=== PATIENT | female | born 1985 | race Caucasian/White ===

== ENCOUNTER 2017-01-10 16:40 | Emergency (ER) | payer MEDICAID ==
[~2017-01-10] VITALS: Ht 160 cm; Wt 68.0 kg
[2017-01-10] MEDS ORDERED: PENICILLIN VK500 M1 PO (17:16)
--- NOTE | 2017-01-10 17:18 | [facility]gent Treatment [facility] Report ---
History of Present Issue Date/Time Seen by Provider 01/10/17 1701 Visit Reason Pt arrived:Walked Presenting Problem:HAD TWO TEETH (1 UPPER AND 1 LOWER) BY DR RIVERA IN [place] A WEEK OR SO AGO AND HAS HAD INCR PAIN AND DISCOMFORT SINCE. STATES SHE IS A SMOKER AND KNOWS THAT CAN CAUSE DRY SOCKET, BUT TOOK THE CEPHALEXIN PRESCRIBED SHE WAS TOLD. IS CONCERNED WITH THE PAIN Location if Accident: Onset of symptoms date/time:01/0310/15/799 or onset unknown for: Have you (or family members/close friends) recently traveled outside the [facility]? N If Yes, where/when: Have you had exposure to infectious disease within the past month? TB? Other? Specify: c/o severe dental pain 2 weeks after tooth extraction. Saw Dr. Rivera, a dentist in [place], 2 weeks ago for extraction of two teeth, one top left and one bottom left. both seemed to be improving post procedure but for the last "week or so" pain has been becoming increasingly worse in bottom left site. Now throbbing constantly. No swelling, drainage, redness. "I think I see something white in the hole". completed prescribed cephalexin. Reports she does smoke and was warned about dry socket but smoked anyways. no improvement despite tylenol, ibuprofen, naproxen. Dr. Rivera is currently on vacation and she is not able to see him until Sunday, 5 days from now. Source patient Exam Limitations no limitations ALLERGIES Coded Allergies: Sulfa (Sulfonamide Antibiotics) (Mild, 01/10/17) History Medical History General Diabetes? No Immunization HX Ped.Immunizations UTD Yes DT/Tetanus 1-4 Years Ago Surgical Hx Previous Surgery?N [employer] Hx LMP N/A Social History Smoking Hx Smoker: Current Every Day Smoker Tobacco: Yes Type Cigarettes Packs/day < 1 Pack Alcohol Alcohol: No Review of Systems All Other Systems Reviewed and Negative Constitutional denies chills, denies fever ENT see HPI, dental caries ("he wants to pull them all"). denies: mouth swelling, tongue swelling, throat pain, throat swelling. Respiratory denies shortness of breath Gastrointestinal denies no symptoms reported Skin denies lesions, denies lumps, denies rash Physical Exam Vital Signs Vital Signs Date Time Temp Pulse Resp B/P Pulse O2 O2 Flow FiO2 Ox Delivery Rate 01/10 1723 98.2 79 18 111/74 97 01/10 1648 98.2 79 18 111/ 97 General Appearance no apparent distress Ear, Nose, Throat normal ENT inspection, second premolar on left, top and bottom , recently extracted. top socket appears to be healing nicely, minimal tenderness, no sign of infection; bottom socket does not appear to be healing. No clot or new growth in alveolar socket, bone visible, marked tenderness, no erythema or swelling Neck non-tender, supple Respiratory Status No: respiratory distress. Cardiovascular no peripheral edema Neurologic alert Skin normal color, warm/dry Lymphatic no adenopathy Medical Decision Making LABS/Meds/Orders Pt receiving controlled substance in ED? No Results/Orders Current Medication Orders Sig/Lele Start time Last Medication Dose Route Stop Time Status Admin Lidocaine HCl 0 .STK-MED ONE 01/11 1716 DC .ROUTE Benzocaine/Butamben/ 1 GM ONCE ONE 01/10 1715 DC Tetracaine HCl TP 01/11 1716 Lidocaine HCl 15 ML ONCE ONE 01/10 1715 DC TP 01/11 1716 Orders Procedure Date/time Status DENTAL BALL 01/10 1710 Active Departure Departure Time of Disposition 1714 Disposition DC Home or Self Care(routine) Clinical Impression Primary Impression: Alveolar osteitis Condition STABLE Referrals DAVID GATICA DMD,CHERIE CHAUDHRY DMD,PAULETTE [place] Since you dentist is on vacation until Sunday, call his office, report that you were diagnosed with a dry socket and told to follow up immediately (). Ask if someone is covering for him and if so, if his office can get you in to see them. If not, call all local dentist and see if someone will see you until you can follow up with him next week. KASSIDY STYLES KEVIN Patient Instructions DI for Dental Pain Additional Instructions Also known as "Dry socket" Caused by premature loss of healing clot in the alveolar socket after tooth extraction Occurs 2-4d after tooth extraction Initial post-extraction pain subsides followed by sudden/severe pain at extraction site Irrigate but socket should not be swabbed out and any residual clot should not be removed Pack with iodoform ribbon gauze soaked local anesthetic Start your antibiotic, Penicillin VK 500mg and be sure to take it as directed Tylenol and ibuprofen as needed for pain. Discharge Counseling Counseled pt/family regarding diagnosis, medications/RX, home care, follow up needs Prescriptions Current Visit Scripts Penicillin V Potassium 500 MG PO QID #40 TAB Comments Sent home with all supplies needed to irrigate and repack Iodoform ribbon soaked in lidocaine and cetacaine. Reports she will get to pharmacy in time immediately following appt to take first dose of antibiotic at 4104
[2017-01-10 17:23] VITALS: BP 111/74
== END 2017-01-10 17:27 | disposition home or self-care (01) ==
LOC: ER 16:40 → UTC 16:50 → ER 16:50 → UTC 17:27
DX: M27.3 Alveolitis of jaws (principal); F17.210 Nicotine dependence, cigarettes, uncomplicated